=== PATIENT | female | born 1965 | race Caucasian/White ===

== ENCOUNTER 2024-12-11 13:17 | Outpatient (CLI) | payer OTHER, SELFPAY ==
--- NOTE | ~2024-12-11 | PE_ITS ---
EXAMINATION: PET skull to mid thigh DATE: 12/11/2024 15:42 INDICATION: Lung nodule in right middle lobe. TECHNIQUE: Blood glucose level was 85 mg/dL. 10.092 mCi of 18-fluorodeoxyglucose (18-FDG) was adminis tered i.v. Low dose computed tomography (CT) images were acquired from the base of the brain to the p roximal thighs for attenuation correction and anatomic localization. Automated exposure control was e mployed. Dose-length product (DLP) was 696 mGy-cm. Positron emission tomography (PET) images were acq uired in the same distribution. COMPARISON: None FINDINGS: Head/neck: There is no lymphadenopathy. Chest: There is mild emphysema. There is a 9 mm nodule in right middle lobe with maximum SUV of 6.7. There is a 4 mm nodule in right middle lobe. No pleural effusion. The heart size is normal. No perica rdial effusion. Abdomen/pelvis/proximal thighs: The liver, gallbladder, spleen, pancreas, adrenal glands, and kidneys are normal. There are no dilated loops of bowel. The appendix is normal. There is a small sliding hi atal hernia. There are no pathologically enlarged lymph nodes. There is no free intraperitoneal fluid . There is no osseous malignancy. IMPRESSION: 1. 9 mm right middle lobe pulmonary nodule with increased activity suspicious for primary bronchogeni c carcinoma. CT-guided biopsy is recommended. Reviewed, dictated and finalized at location A. H MOSS OPERATOR IMPRESSION: 1. 9 mm right middle lobe pulmonary nodule with increased activity suspicious f or primary bronchogenic carcinoma. CT-guided biopsy is recommended.
--- OUTSIDE RECORDS SUMMARY | 2024-12-11 13:27 | XMS_ITS | Clinical Summary ---
Author Organization [facility] Address [address], [facility] 1 [place] [address] Phone Care Team Providers Care Roving Hauler Name Role Phone Manny Price MD Unavailable Provider, Not On File Primary Care Provider Unav ailable Allergies No known active allergies Medications ALBUTEROL IN take by inhalation. Active Calcium Citrate-Vitamin D (CALCIUM + D PO) Take by mouth. 600-400 take 1 tablet twice daily Active ferrous gluconate 324 (38 Fe) MG Tablet Take 324 mg by mouth 2 times daily. Active folic acid (FOLVITE) 1 MG Tablet Take 1 mg by mouth daily. Active Omeprazole 20 MG Tablet Delayed Response Take by mouth. Active Active Problems No known active problems Encounters Date Type Department Care Team Description 11/19/2024 Telephone [facility] [address], [facility] [address] [place] [phone] Manny Price MD 11/17/2024 2:00 PM PLUG SAW OPERATOR Clinical Support [facility] [address] [place] [address] Nurse, [facility] Iron deficiency anemia due to chronic blood loss (Primary Dx) 11/17/2024 12:30 PM PLUG SAW OPERATOR Office Visit [facility] [address] [place] [address] Manyn Price MD Iron deficiency anemia due to chronic blood loss (Primary Dx); Lung nodule 11/17/2024 Telephone [facility] [address] [place] [address] Manny Price MD 11/17/2024 Travel from Last 3 Months Social History Tobacco Use Types Packs/Day Years Used Date Smoking Tobacco: Former Cigarettes 1 42.1 S tarted: 11/17/1982 Smokeless Tobacco: Never Tobacco Cessation:Counseling Given: No Alcohol Use Standard Drinks/Week Comments Not Currently 0 (1 standard drink = 0.6 oz pur e alcohol) Sexually Active Control Partners Comments Not Currently Comments Unknown Sex and Gender Information Value Date Recorded Sex Assigned at Not on file Legal Sex Female 10:16 AM PLUG SAW OPERATOR Gender Identity Not on file Sexual Orientation Not on file Last Filed Vital Signs Vital Sign Reading Time Taken Comments Blood Pressure 106/68 11/17/2024 12:38 PM PLUG SAW OPERATOR Pulse 94 11/17/2024 12:38 PM PLUG SAW OPERATOR Temperature 36.8 C (98.2 F) 11/17/2024 12:38 PM PLUG SAW OPERATOR Respiratory Rate - - Oxygen Saturation 99% 11/17/2024 12:38 PM PLUG SAW OPERATOR Inhaled Oxygen Concentration - - Weight 59.9 kg (132 lb) 11/17/2024 12:38 PM PLUG SAW OPERATOR Height 157.5 cm (5' 2 ) 11/17/2024 12:38 PM PLUG SAW OPERATOR Body Mass Index 24.14 11/17/2024 12:38 PM PLUG SAW OPERATOR Plan of Treatment Upcoming Encounters Date Type Department Care Team (Late st Contact Info) Description 12/15/2024 9:30 AM PLUG SAW OPERATOR Office Visit [facility] [address] [place] [phone] Manny Price MD [address] [place] [address] Health Maintenance Due Date Last Done Comments Hepatitis C Virus (HCV) Screening 1965 TdaP Immunization 1964 Pap Smear 1985 Cervical Cancer Screening (CCS) 1994 HPV/Cotest 1994 Colonoscopy 2009 Colorectal Cancer Screening 2009 Cologuard 2014 Immunochemical Fecal Occult Blood 2014 Mammogram 2014 Pneumococcal Immunization (5 0+ years) (1 of 1 - PCV) 2014 Zoster Immunization (1 of 2) 2014 Influenza Immunization (#1) 2024 SARS-COV-2 Immunization (1 - 2023- season) 2024 Respiratory Syncytial Virus (RSV) Immunization (Adult) (1 - 1-dose 75+ series) 2039 Hepatitis B Immunization Aged Out No longer eligible based on patient's age to complete this topic Meningococcal Immunization (ACWY) Aged Out No longer eligible based on patient's age to complete this topic Rotavirus Immunization Aged Out No lo nger eligible based on patient's age to complete this topic Insurance [employer] Care Teams Roving Hauler Relationship Specialty Start Date End Date Provider, Not On File MD PCP - General 11/17/24 Manny Price MD [address] [place] [address] Consulting Physician Oncology 11/17/24
[2024-12-11 14:13] LABS: Glucose Point of Care 85 mg/dl (65-105)
== END 2024-12-11 13:18 | disposition home or self-care (01) ==
LOC: ANHIMG 13:19
PROVIDERS: Visit Provider Physician Assistant
DX: R91.1 Solitary pulmonary nodule (principal)
CPT/HCPCS: 78815; A9552

== ENCOUNTER 2025-01-07 05:41 | Outpatient (CLI) | payer OTHER, SELFPAY ==
[2025-01-02 10:12] VITALS: BMI 23.8
--- NOTE | 2025-01-02 10:14 | PC.NURSE ---
Pre Radiology instructions Report to Hospital entrance 7 just right of the outpatient green pavilion by [address] parking lot on date _[id number]_ at time _0900_ for procedure Time: _1100_ YOU MAY BE MONITORED AT HOSPITAL FOR UP TO 4 HOURS AFTER YOUR PROCEDURE. You and your visitor will be asked to self-screen and do not enter if you have any COVID symptoms. A mask is OPTIONAL within the hospital. Patients are to have no food or drink 6 hours prior to procedure time Driving will be restricted after the procedure, you must have a person to drive you home. Labs will be drawn in preop area and once reviewed, you will be taken to radiology area for procedure. When the procedure is completed, you will be taken to outpatient where you will be monitored for several hours. You may have one visitor in this area. Other than holding anti-coagulants, patient may take other medication(s) as scheduled. Prior to your appointment date patients are instructed to hold anti-coagulants after discussing with ordering provider to stop. If unable to discontinue anti-coagulants please notify radiologist. ? No aspirin or warfarin (Coumadin) for 7 days prior to the procedure. ? No clopidogrel (Plavix), ticagrelor (Brilinta), prasugrel (Effient) or dabigatran (Pradaxa) for 5 days prior to the procedure. ? No rivaroxaban (Xarelto), apixaban (Eliquis), dipyridamole (Aggrenox or Persantine) or cilostazol (Pletal) for 2 days prior to the procedure. Medications to discontinue per physician: ___None Date to take last dose: Please leave all valuables, including medications, at home the day of procedure. The hospital will not accept responsibility for valuables. Wear comfortable, loose fitting clothing.? Follow any additional instructions given to you from ordering provider. Telephone instructions given to ___Anat Richardson__and asked if any additional questions and then verbalized understanding. Patient advised to call scheduling provider office or registration scheduling [phone] if any additional questions.
[2025-01-07] VITALS (11 sets, daily range): BP systolic 97–144; BP diastolic 40–118; PULSE 54–80; RESP 14–18; TEMP 36.3; O2SAT 94–100; BMI 24.0
--- NOTE | ~2025-01-07 | XR_ITS ---
XR chest 1V Ordering provider: Juanito Heaton MD History: 59 years Female with . POST LUNG BIOPSY . Comparison: None. FINDINGS: MEDIASTINUM: The cardiac silhouette is not enlarged. LUNGS: No infiltrates, effusions or pneumothorax. OTHER: No free air under the diaphragm. IMPRESSION: No acute cardiopulmonary pathology. Reviewed, dictated and finalized at location A. ON SAMPLER
--- NOTE | ~2025-01-07 | XR_ITS ---
EXAMINATION: XR chest 1V portable DATE: 01/07/2025 14:36 INDICATION: Right lung nodule status post percutaneous biopsy. TECHNIQUE: A single frontal view of the chest was obtained. COMPARISON: Chest single view at 12:45 PM FINDINGS: There are airspace opacities in right mid and lower lung zones. There is a small right pneu mothorax. No pleural effusion. The heart size is normal. IMPRESSION: 1. Worsened small right pneumothorax. 2. Worsened mild airspace opacities in right mid and lower lung zones, consistent with atelectasis an d postbiopsy hemorrhage. Reviewed, dictated and finalized at location A. HEAD HAND IMPRESSION: 1. Worsened small right pneumothorax. 2. Worsened mild airspace opacities in right mid and lower lung zones, consiste nt with atelectasis and postbiopsy hemorrhage.
--- NOTE | ~2025-01-07 | XR_ITS ---
EXAMINATION: XR chest 1V portable DATE: 01/07/2025 12:50 INDICATION: Right lung nodule status post percutaneous biopsy. TECHNIQUE: A single frontal view of the chest was obtained. COMPARISON: Chest single view at 11:31 AM FINDINGS: There are airspace opacities in right middle lobe. No pleural effusion or pneumothorax. The heart size is normal. IMPRESSION: 1. Airspace opacities in right middle lobe, consistent with postbiopsy hemorrhage. Reviewed, dictated and finalized at location A. DRY PRESS HELPER IMPRESSION: 1. Airspace opacities in right middle lobe, consistent with postbiopsy hemorrha ge.
--- NOTE | ~2025-01-07 | CT_ITS ---
EXAMINATION: CT biopsy lung w/imaging DATE: 01/07/2025 11:34 INDICATION: Solitary pulmonary nodule. TECHNIQUE: The procedure including the risks, benefits, and alternatives and possibility of chest tub e placement were discussed with the patient. Risks discussed included infection, hemorrhage, approxim ately 1/3 risk of pneumothorax, approximately 1/10 risk of pneumothorax severe enough to warrant ches t tube placement, and rarely . The patient understood the risks and agreed to proceed. The patie nt was placed supine. The skin overlying the right lung was prepped and draped in sterile fashion. Anesthetic was administered with 1% lidocaine subcutaneously. A 19 gauge outer needle was advanced u nder CT guidance to the lesion of interest. A 20 gauge core biopsy needle was then used to obtain 3 c ore biopsy specimens. The needle was removed and the entry site was cleaned and dressed. The mA was a djusted according to patient size. Iterative reconstruction technique was employed. The dose-length p roduct was 193.62 mGy-cm. There were no immediate complications. FINDINGS: CT images demonstrate the outer needle tip adjacent to a 9 mm nodule in right middle lobe. IMPRESSION: 1. CT-guided core needle biopsy of a 9 mm nodule in right lung middle lobe. Reviewed, dictated and finalized at location A. GER OF PROJECT MANAGEMENT
--- OUTSIDE RECORDS SUMMARY | 2025-01-07 05:44 | XMS_ITS | Clinical Summary ---
Author Organization [facility] Address [address], [facility] [address] [place] [address] Phone Care Team Providers Care Hospital Chaplain Name Role Phone Manny Price MD Unavailable [...] Response Take by mouth. Active Active Problems Problem Noted Date Diagnosed Date Iron deficiency anemia due to chronic blood loss 12/15/2024 Encounters Date Type Department Care Team Description 12/19/2024 Telephone [facility] [address], [address] [place] [phone] Manny Price MD 12/15/2024 10:00 AM SENIOR OFFICE SUPPORT ASSISTANT SOSA Clinical Support [facility] [address] [place] [phone] Nurse, [facility] Iron deficiency anemia due to chronic blood loss (Primary Dx) 12/15/2024 9:30 AM SENIOR OFFICE SUPPORT ASSISTANT SOSA Office Visit [facility] [address] [place] [phone] Manny Price MD Iron deficiency anemia due to chronic blood loss (Primary Dx); Lung nodule 12/15/2024 Travel 11/19/2024 Telephone [facility] [address], [address] [place] [phone] Manny Price MD 11/17/2024 2:00 PM SENIOR OFFICE SUPPORT ASSISTANT SOSA Clinical Support [facility] [place] [address] [place] [address] Nurse, [facility] Iron deficiency anemia due to chronic blood loss (Primary Dx) 11/17/2024 12:30 PM SENIOR OFFICE SUPPORT ASSISTANT SOSA Office Visit [facility] [place] [address] [place] [address] Manny Price MD Iron deficiency anemia due to chronic blood loss (Primary Dx); Lung nodule 11/17/2024 Telephone [facility] [address] [address] Manny Price MD 11/17/2024 Travel from [...] on file Legal Sex Female 10:16 AM SENIOR OFFICE SUPPORT ASSISTANT SOSA Gender Identity Not on file Sexual Orientation Not on file Last Filed Vital Signs Vital Sign Reading Time Taken Comments Blood Pressure 110/70 12/15/2024 9:25 AM SENIOR OFFICE SUPPORT ASSISTANT SOSA Pulse 86 12/15/2024 9:25 AM SENIOR OFFICE SUPPORT ASSISTANT SOSA Temperature 36.8 C (98.2 F) 12/15/2024 9:25 AM SENIOR OFFICE SUPPORT ASSISTANT SOSA Respiratory Rate - - Oxygen Saturation 98% 12/15/2024 9:25 AM SENIOR OFFICE SUPPORT ASSISTANT SOSA Inhaled Oxygen Concentration - - Weight 59 kg (130 lb) 12/15/2024 9:25 AM SENIOR OFFICE SUPPORT ASSISTANT SOSA Height 157.5 cm (5' 2 ) 12/15/2024 9:25 AM SENIOR OFFICE SUPPORT ASSISTANT SOSA Body Mass Index 23.78 12/15/2024 9:25 AM SENIOR OFFICE SUPPORT ASSISTANT SOSA Plan of Treatment Upcoming Encounters Date Type Department Care Team (Late st Contact Info) Description 02/02/2025 9:45 AM CDT Office Visit [facility] [place] [address] [place] [address] Manny Price MD [address] [place] [address] 02/02/2025 10:00 AM CDT Clinical Support [facility] [address] [place] [phone] Health Maintenance Due Date Last Done Comments Hepatitis C Virus (HCV) Screening 1965 Mammogram 1964 TdaP Immunization 1964 Pap Smear 1985 Cervical Cancer Screening (CCS) 1994 HPV/Cotest 1994 Colonoscopy 2009 Colorectal Cancer Screening 2009 Cologuard 2014 Immunochemical Fecal Occult Blood 2014 Pneumococcal Immunization (5 0+ years) (1 of 1 - PCV) 2014 Zoster Immunization (1 of 2) 2014 Influenza Immunization (#1) 2024 SARS-COV-2 Immunization ( - season) 2024 Respiratory Syncytial Virus (RSV) Immunization (Adult) (1 - 1-dose 75+ series) 2039 Hepatitis B Immunization Aged Out No longer eligible based on patient's age to complete this topic Meningococcal Immunization (ACWY) Aged Out No longer eligible based on patient's age to complete this topic Rotavirus Immunization Aged Out No lo nger eligible based on patient's age to complete this topic Insurance [facility] [address] [facility] [employer] Care Teams Hospital Chaplain Relationship Specialty Start Date End Date Provider, Not On File [place] PCP - General 11/17/24 Manny Price MD [address] [place], [place] [phone] Consulting Physician Oncology 11/17/24
[2025-01-07 09:48] LABS: Basophils Absolute Auto 0.1 K/mm3 (0.0-0.1); Basophils Percent Auto 2.2 % (0.2-1.2); Eosinophils Absolute Auto 0.2 K/mm3 (0-0.3); Eosinophils Percent Auto 4.6 % (0-4.4); Hematocrit 26.4 % (37.0-47.0); Hemoglobin 7.9 g/dL (12.0-15.0); Lymphocytes Absolute Auto 0.95 K/mm3 (0.9-3.2); Lymphocytes Percent Auto 25.7 % (18.3-44.2); Mean Corpuscular HGB Conc 29.9 g/dl (32-36); Mean Corpuscular Hemoglobin 25.2 pg (26-34); Mean Corpuscular Volume 84.1 fl (80-100); Mean Platelet Volume 9.8 fl (7.4-10.4); Monocytes Absolute Auto 0.6 K/mm3 (0.1-0.6); Monocytes Percent Auto 14.9 % (2.6-8.5); Neutrophils Absolute Auto 1.9 K/mm3 (1.3-6.7); Neutrophils Percent Auto 52.6 % (45.5-73.1); Platelet Count Result 353 k/mm3 (150-375); Red Blood Count 3.14 M/mm3 (4.2-5.4); Red Cell Distribution Width 20.5 % (11.5-14.5); White Blood Count 3.7 K/mm3 (4.5-10.0)
[2025-01-07 10:04] LABS: Anisocytosis 1+; Platelet Estimate Adequate (Adequate); Polychromasia 1+; Schistocytes None Seen
[2025-01-07 10:05] LABS: Prothrombin Time 13.2 Seconds (11.1-14.7)
== END 2025-01-07 15:08 | disposition home or self-care (01) ==
PROVIDERS: Referring Provider Internal Medicine Critical Care Medicine; Visit Provider Radiology Diagnostic Radiology
PROC: BB24ZZZ Computerized Tomography (CT Scan) of Bilateral Lungs (ICD-10-PCS; CPT 32408; principal; 2025-01-07 11:00)
DX: R91.1 Solitary pulmonary nodule (principal)
CPT/HCPCS: 32408; 36415; 71045; 85025; 85610; 88305; 88342